=== PATIENT | male | born 1985 | race Caucasian/White ===

== ENCOUNTER 2021-05-31 12:50 | Emergency (ER) | payer OTHER ==
[2021-05-31] MEDS ORDERED: IBUPROFEN600 MG PO (14:15)
[2021-05-31] MEDS ORDERED: CEPHALEXIN500 M1 PO (14:15)
== END 2021-05-31 14:20 | disposition home or self-care (01) ==
LOC: ER1 12:50
DX: S01.02XA Laceration with foreign body of scalp, initial encounter (principal); Z23 Encounter for immunization; W46.1XXA Contact with contaminated hypodermic needle, initial encounter
CPT/HCPCS: 12001; 90471; 90715; 99282